=== PATIENT | male | born 1975 | race African-American/Black ===

== ENCOUNTER 2018-03-06 15:13 | Emergency (ER) | payer BC ==
--- NOTE | 2018-03-06 15:45 | EKG ---
Test Date: 2018-03-06 Test Time: 15:24:24 Er Physician: ACOSTA MEASUREMENT RESULTS: Intervals: Rate: 68 AL: 180 QRSD: 88 QT: 372 QTc: 395 [place]: P: 62 AL: 180 QRS: 61 T: 50 INTERPRETIVE STATEMENTS: Normal sinus rhythm Minimal voltage criteria for LVH, may be normal variant Borderline ECG No previous ECG available for comparison Electronically Signed On 03-06-18 15:44:29 CDT by Chapo Iqbal
[2018-03-06 15:57] LABS: Absolute Monocytes 0.6 K/uL (0.1-1.3); Absolute Neutrophil 11.1 K/uL (1.8-8.0); Hematocrit 41.6 % (39.6-49.0); Lymphocytes % 14.2 % (15.3-44.8); MCH 34.6 pg (27.0-35.0); MCV 102.3 fL (80-100); MPV 7.8 fL (7.6-11.3); Monocytes % 4.4 % (3.3-12.3); RBC Red Blood Cell Count 4.07 M/uL (4.33-5.43)
[2018-03-06 15:58] LABS: Protime INR 0.97
[2018-03-06] MEDS ORDERED: MAGNE/ALUM HYDROXD 30 ML UCUP ONE (16:04)
[2018-03-06] MEDS ORDERED: MORPHINE 4 MG/ML SYR ONE (16:06)
[2018-03-06] MEDS ORDERED: LIDOCAINE VISCOUS 2% SOLN 15 ML UDC ONE (16:06)
[2018-03-06] MEDS ORDERED: NA CHLORIDE 0.9% 1,000 ML ONE (16:06)
[2018-03-06] MEDS ORDERED: PANTOPRAZOLE 40 MG INJ ONE (16:06)
[2018-03-06] MEDS ORDERED: ONDANSETRON 4 MG/2 ML VIAL ONE (16:06)
[2018-03-06 16:22] LABS: ALT/SGPT 25 U/L (12-78); AST/SGOT 14 U/L (15-37); Albumin 4.1 g/dL (3.4-5.0); Alkaline Phosphatase 67 U/L (45-117); BUN Blood Urea Nitrogen 19 mg/dL (7-18); Bicarbonate 26 mmol/L (21-32); Bilirubin Direct < 0.1 mg/dL (0-0.2); Bilirubin Total 0.3 mg/dL (0.2-1.0); Glucose Level 111 mg/dL (74-106); Lipase 111 U/L (73-393); Magnesium 2.3 mg/dL (1.8-2.4); NT PRO-BNP 198 pg/mL (<125); Protein, Total 7.6 g/dL (6.4-8.2); Sodium Level 139 mmol/L (136-145); Troponin (Emerg Dept Use Only) < 0.02 ng/mL (0.0-0.045)
--- NOTE | 2018-03-06 16:33 | RAD REPORT ---
EXAM DESCRIPTION: RAD - Chest Single View - 03/06/2018 4:11 pm CLINICAL HISTORY: Chest pain COMPARISON: None. TECHNIQUE: AP portable chest image was obtained 1605 hours . FINDINGS: No focal lung parenchymal process. No failure or volume overload. Interstitial markings ar e mildly prominent with baseline for the patient unknown. Heart and vasculature are normal. No measur able pleural effusion and no pneumothorax. No acute bony abnormality seen. No acute aortic findings s uspected. IMPRESSION: No focal lung parenchymal process. Mild prominence of the interstitial markings noted. On a baseline exam, minimal interstitial edema or infiltrate not excluded.
--- NOTE | 2018-03-06 17:01 | RAD REPORT ---
EXAM DESCRIPTION: CT - Chest For Pe Angio - 03/06/2018 4:50 pm CLINICAL HISTORY: Chest pain COMPARISON: None. TECHNIQUE: Dynamically enhanced 3 mm thick images of the chest were obtained during administration o f approximately 150mL Isovue 370 IV contrast. Coronal and oblique MIP reconstruction images were gene rated and reviewed. Exam utilizes a protocol to evaluate the pulmonary arterial tree. All CT scans are performed using dose optimization technique as appropriate and may include automated exposure control or mA/KV adjustment according to patient size. FINDINGS: No pulmonary emboli are identified. The aorta as imaged shows no acute or suspicious finding. No pericardial thickening or effusion. No infiltrate or mass in the lung parenchyma. No pleural effusion or pleural thickening. No mediastinal or hilar suspicious masses. No chest wall masses or abnormal axillary lymphadenopathy. IMPRESSION: No pulmonary emboli identified. No other significant or suspicious findings.
[2018-03-06 17:26] LABS: Urine Blood NEGATIVE (NEG); Urine Glucose NEGATIVE (NEG); Urine Protein NEGATIVE (NEG); Urine Specific Gravity 1.015 (1.005-1.030)
--- NOTE | 2018-03-06 17:45 | ER ---
Nurse's Notes [facility] Name: Linden Muniz Jr Age: 42 yrs Sex: Male : 1975 Arrival Date: 03/06/2018 Time: 15:15 Bed 6 Private MD: Diagnosis: Gastro-esophageal reflux disease;Hiccough;Other chest pain-non cardiac Presentation: 03/06 15:21 Presenting complaint: Patient states: LAST TUE I WENT INTO URGENT CARE FOR SORE THROAT, ch HICCUPS, AND SINUS ISSUES. THE DAYS PROGRESSED, MY HICKUPS HAVE GOTTEN WORSE. MY THROAT HURTS MORE, AND MY CHEST HURTS A WHOLE LOT. TODAY I CANT CATCH MY BREATH, AND ITS CONCERNING ME. I TOOK ONE ANTIBIOTIC TODAY. Transition of care: patient was not received from another setting of care. Onset of symptoms. Risk Assessment: Do you want to hurt yourself or someone else? Patient reports no desire to harm self or others. Initial Sepsis Screen: Does the patient meet any 2 criteria? No. Patient's initial sepsis screen is negative. Does the patient have a suspected source of infection? No. Patient's initial sepsis screen is negative. Care prior to arrival: None. 15:21 Method Of Arrival: Ambulatory 15:21 Acuity: GERALDO 3 ch Triage Assessment: 15:25 General: Appears in no apparent distress. comfortable, Behavior is calm, cooperative, ch appropriate for age. Pain: Complains of pain in chest, neck and throat Pain currently is 7 out of 10 on a pain scale. Quality of pain is described as burning, Is intermittent. Cardiovascular: Reports chest pain. Respiratory: Reports shortness of breath. Historical: - Allergies: 15:25 No Known Allergies; - Home Meds: 15:25 TRAMADOL, ANBTIBOTIC UNKNOWN, ROBITUSSIN, AND STEROIDS FROM URGENT CARE [Active]; - PMHx: 15:25 SKULL FRACTURE AND GRADE THREE CONCUSSION IN 1996; - PSHx: 15:25 None; - Immunization history:: Adult Immunizations up to date, Flu vaccine is not up to date. - Social history:: Smoking status: Patient uses tobacco products, denies chronic smoking, but will smoke occasionally. - Ebola Screening: : Patient negative for fever greater than or equal to 101.5 degrees Fahrenheit, and additional compatible Ebola Virus Disease symptoms Patient denies exposure to infectious person Patient denies travel to an Ebola-affected area in the 21 days before illness onset No symptoms or risks identified at this time. - Family history:: not pertinent. Screenin:34 Abuse screen: Denies threats or abuse. Nutritional screening: No deficits noted. tw2 Tuberculosis screening: No symptoms or risk factors identified. Fall Risk None identified. Assessment: 15:34 Pain: Pain does not radiate. Pain began gradually. tw2 15:45 General: Appears uncomfortable, Behavior is anxious, crying. Pain: Complains of pain in tw2 chest. Neuro: Level of Consciousness is awake, alert, obeys commands, Oriented to person, place, time, situation. Cardiovascular: Heart tones S1 S2 Patient's skin is warm and dry. Respiratory: Airway is patent Respiratory effort is even, unlabored, Respiratory pattern is regular, symmetrical, Breath sounds are clear bilaterally. pt placed on 2L nc for comfort at this time. GI: Reports indigestion, and hiccups, "and when i get the hiccups it just takes my breath away". : No signs and/or symptoms were reported regarding the genitourinary system. EENT: No signs and/or symptoms were reported regarding the EENT system. Derm: No signs and/or symptoms reported regarding the dermatologic system. Skin is intact, is healthy with good turgor, Skin is dry, Skin temperature is warm. Musculoskeletal: Circulation, motion, and sensation intact. Range of motion: intact in all extremities. 16:28 Reassessment: Patient appears in no apparent distress at this time. Patient and/or tw2 family updated on plan of care and expected duration. Pain level reassessed. Patient is alert, oriented x 3, equal unlabored respirations, skin warm/dry/pink. 16:56 Reassessment: Patient appears in no apparent distress at this time. Patient and/or tw2 family updated on plan of care and expected duration. Pain level reassessed. Patient is alert, oriented x 3, equal unlabored respirations, skin warm/dry/pink. intractable hiccups at this time and during CT scan, provider notified, no further orders at this time. 18:00 Reassessment: Patient appears in no apparent distress at this time. Patient and/or tw2 family updated on plan of care and expected duration. Pain level reassessed. Patient is alert, oriented x 3, equal unlabored respirations, skin warm/dry/pink. 18:19 Reassessment: Patient appears in no apparent distress at this time. Patient and/or tw2 family updated on plan of care and expected duration. Pain level reassessed. Patient is alert, oriented x 3, equal unlabored respirations, skin warm/dry/pink. Vital Signs: 15:25 BP 157 / 98; Pulse 70; Resp 22; Temp 98.8; Pulse Ox 100% on R/A; Weight 88.45 kg; ch Height 6 ft. 1 in. (185.42 cm); Pain 7/10; 16:28 BP 124 / 102; Pulse 67; Resp 17; Pulse Ox 100% on 2 lpm NC; tw2 16:58 BP 142 / 85; Pulse 49; Resp 17; Pulse Ox 100% on 2 lpm NC; tw2 18:01 BP 123 / 86; Pulse 51; Resp 13; Pulse Ox 100% on R/A; tw2 15:25 Body Mass Index 25.73 (88.45 kg, 185.42 cm) ch 16:58 provider notified. tw2 ED Course: 15:15 Patient arrived in ED. as 15:23 Triage completed. ch 15:25 Arm band placed on left wrist. Patient placed in an exam room, on a stretcher. ch 15:27 Rekha Knowles, RN is Primary Nurse. tw2 15:27 Bed in low position. Call light in reach. bus driver/monitor on. Pulse ox on. NIBP on. tw2 15:27 EKG done, by plant tech. reviewed by Dedrick Costello MD. at1 15:30 Dedrick Costello MD is Attending Physician. radhames 15:34 Patient maintains SpO2 saturation greater than 95% on room air. tw2 15:45 Inserted saline lock: 20 gauge in left antecubital area, using aseptic technique. Blood tw2 collected. 16:10 XRAY Chest (1 view) In Process Unspecified. EDMS 16:50 CT Chest For PE Angio In Process Unspecified. EDMS 17:43 Andrew Toussaint MD is Referral Physician. radhames 18:04 Awaiting: awaiting 15 minute watch after medication admin. tw2 18:19 No provider procedures requiring assistance completed. IV discontinued, intact, tw2 bleeding controlled, No redness/swelling at site. Pressure dressing applied. Administered Medications: 16:04 Drug: ProTONIX 40 mg Route: IVP; Site: left antecubital; tw2 16:49 Follow up: Response: No adverse reaction tw2 16:06 Drug: Zofran 4 mg Route: IVP; Site: left antecubital; tw2 17:00 Follow up: Response: No adverse reaction tw2 16:08 Drug: morphine 4 mg Route: IVP; Site: left antecubital; tw2 16:59 Follow up: Response: No adverse reaction tw2 16:09 Drug: NS 0.9% 1000 ml Route: IV; Rate: 125 ml/hr; Site: left antecubital; tw2 18:19 Follow up: IV Status: Order to discontinue infusion tw2 16:09 Drug: GI Cocktail without - (Maalox Suspension 30 ml, Lidocaine Liquid 2 % 15 tw2 ml) Route: PO; 16:59 Follow up: Response: No adverse reaction; No change in condition tw2 17:42 CANCELLED (Duplicate Order): chlorproMAZINE 25 mg IV at per protocol once [facility] 18:00 Drug: chlorproMAZINE 25 mg Route: PO; tw2 18:18 Follow up: Response: No adverse reaction tw2 Outcome: 17:45 Discharge ordered by . [facility] 18:19 Discharged to home ambulatory. tw2 18:19 Condition: stable 18:19 Discharge instructions given to patient, Instructed on discharge instructions, follow up and referral plans. no drinking with medication, no driving heavy equipment, medication usage, Demonstrated understanding of instructions, follow-up care, medications, Prescriptions given X 3. 18:20 Patient left the ED. tw2 Signatures: Dispatcher [employer] EDMS Jodee Baker, RN Dedrick Garcia ch, MD MD cha Martinez, Amelia as Gonzales, Amanda, methods specialist EKG Tat1 Rekha Knowles RN RN tw2
--- NOTE | 2018-03-06 17:45 | EDPHYS ---
Physician Documentation [facility] Name: Linden Muniz Jr Age: 42 yrs Sex: Male : 1975 Arrival Date: 03/06/2018 Time: 15:15 Bed 6 Private MD: ED Physician Dedrick Costello HPI: 03/06 15:45 This 42 yrs old Black Male presents to ER via Ambulatory with complaints of Chest Pain, radhames Shortness Of Breath. 15:45 The patient or guardian reports chest pain that is located primarily in the substernal radhames area, anterior chest wall. Onset: 3 day(s) ago. The pain does not radiate. Associated signs and symptoms: The patient has no apparent associated signs or symptoms. Associated signs and symptoms: Pertinent positives: cough, shortness of breath. The chest pain is described as burning. Modifying factors: The symptoms are alleviated by remaining still, hiccups. Severity of pain: At its worst the pain was moderate in the emergency department the pain is unchanged. The patient has not experienced similar symptoms in the past. Historical: - Allergies: 15:25 No Known Allergies; ch - Home Meds: 15:25 TRAMADOL, ANBTIBOTIC UNKNOWN, ROBITUSSIN, AND STEROIDS FROM URGENT CARE [Active]; ch - PMHx: 15:25 SKULL FRACTURE AND GRADE THREE CONCUSSION IN 1996; ch - PSHx: 15:25 None; ch - Immunization history:: Adult Immunizations up to date, Flu vaccine is not up to date. - Social history:: Smoking status: Patient uses tobacco products, denies chronic smoking, but will smoke occasionally. - Ebola Screening: : Patient negative for fever greater than or equal to 101.5 degrees Fahrenheit, and additional compatible Ebola Virus Disease symptoms Patient denies exposure to infectious person Patient denies travel to an Ebola-affected area in the 21 days before illness onset No symptoms or risks identified at this time. - Family history:: not pertinent. ROS: 15:45 Constitutional: Negative for fever, chills, and weight loss, Eyes: Negative for injury, radhames pain, redness, and discharge, ENT: Negative for injury, pain, and discharge, Neck: Negative for injury, pain, and swelling, Respiratory: Negative for shortness of breath, cough, wheezing, and pleuritic chest pain, Abdomen/GI: Negative for abdominal pain, nausea, vomiting, diarrhea, and constipation, Back: Negative for injury and pain, : Negative for injury, bleeding, discharge, and swelling, MS/Extremity: Negative for injury and deformity, Skin: Negative for injury, rash, and discoloration, Neuro: Negative for headache, weakness, numbness, tingling, and seizure, Psych: Negative for depression, anxiety, suicide ideation, homicidal ideation, and hallucinations, Allergy/Immunology: Negative for hives, rash, and allergies, Endocrine: Negative for neck swelling, polydipsia, polyuria, polyphagia, and marked weight changes, Hematologic/Lymphatic: Negative for swollen nodes, abnormal bleeding, and unusual bruising. 15:45 Cardiovascular: Positive for chest pain, of the chest. Exam: 15:45 Constitutional: This is a well developed, well nourished patient who is awake, alert, radhames and in no acute distress. Head/Face: Normocephalic, atraumatic. Eyes: Pupils equal round and reactive to light, extra-ocular motions intact. Lids and lashes normal. Conjunctiva and sclera are non-icteric and not injected. Cornea within normal limits. Periorbital areas with no swelling, redness, or edema. ENT: Nares patent. No nasal discharge, no septal abnormalities noted. Tympanic membranes are normal and external auditory canals are clear. Oropharynx with no redness, swelling, or masses, exudates, or evidence of obstruction, uvula midline. Mucous membranes moist. Neck: Trachea midline, no thyromegaly or masses palpated, and no cervical lymphadenopathy. Supple, full range of motion without nuchal rigidity, or vertebral point tenderness. No Meningismus. Chest/axilla: Normal chest wall appearance and motion. Nontender with no deformity. No lesions are appreciated. Abdomen/GI: Soft, non-tender, with normal bowel sounds. No distension or tympany. No guarding or rebound. No evidence of tenderness throughout. Back: No spinal tenderness. No costovertebral tenderness. Full range of motion. Male : Normal genitalia with no discharge or lesions. Skin: Warm, dry with normal turgor. Normal color with no rashes, no lesions, and no evidence of cellulitis. MS/ Extremity: Pulses equal, no cyanosis. Neurovascular intact. Full, normal range of motion. Neuro: Awake and alert, GCS 15, oriented to person, place, time, and situation. Cranial nerves II-XII grossly intact. Motor strength 5/5 in all extremities. Sensory grossly intact. Cerebellar exam normal. Normal gait. Psych: Awake, alert, with orientation to person, place and time. Behavior, mood, and affect are within normal limits. 15:45 Cardiovascular: Rate: normal, Rhythm: regular, Heart sounds: normal, Edema: is not appreciated, JVD: is not appreciated. 15:48 Musculoskeletal/extremity: DVT Exam: No signs of deep vein thrombosis. no pain, no radhames swelling, no tenderness, negative Homans' sign noted on exam, no appreciated bluish discoloration, no erythema, no increased warmth. Vital Signs: 15:25 BP 157 / 98; Pulse 70; Resp 22; Temp 98.8; Pulse Ox 100% on R/A; Weight 88.45 kg; ch Height 6 ft. 1 in. (185.42 cm); Pain 7/10; 16:28 BP 124 / 102; Pulse 67; Resp 17; Pulse Ox 100% on 2 lpm NC; tw2 16:58 BP 142 / 85; Pulse 49; Resp 17; Pulse Ox 100% on 2 lpm NC; tw2 18:01 BP 123 / 86; Pulse 51; Resp 13; Pulse Ox 100% on R/A; tw2 15:25 Body Mass Index 25.73 (88.45 kg, 185.42 cm) ch 16:58 provider notified. tw2 MDM: 15:30 Patient medically screened. [facility] 15:48 Data reviewed: vital signs, nurses notes, lab test result(s), EKG, radiologic studies, [facility] CT scan, plain films. 03/06 15:31 Order name: Basic Metabolic Panel; Complete Time: 17:24 [facility] 03/06 15:31 Order name: CBC with Diff; Complete Time: 17:24 [facility] 03/06 15:31 Order name: LFT's; Complete Time: 17:24 [facility] 03/06 15:31 Order name: Magnesium; Complete Time: 17:24 [facility] 03/06 15:31 Order name: NT PRO-BNP; Complete Time: 17:24 [facility] 03/06 15:31 Order name: PT-INR; Complete Time: 17:24 [facility] 03/06 15:31 Order name: Troponin (emerg Dept Use Only); Complete Time: 17:24 [facility] 03/06 15:31 Order name: XRAY Chest (1 view); Complete Time: 17:24 [facility] 03/06 15:31 Order name: Lipase; Complete Time: 17:24 [facility] 03/06 15:45 Order name: CT Chest For PE Angio; Complete Time: 17:24 [facility] 03/06 17:20 Order name: Urine Dipstick--Ancillary (enter results); Complete Time: 17:40 03/06 15:31 Order name: EKG - Nurse/Tech; Complete Time: 15:31 [facility] 03/06 15:31 Order name: EKG; Complete Time: 15:31 [facility] 03/06 15:31 Order name: Cardiac monitoring; Complete Time: 15:34 [facility] 03/06 15:31 Order name: EKG - Nurse/Tech; Complete Time: 15:34 [facility] 03/06 15:31 Order name: IV Saline Lock; Complete Time: 15:54 [facility] 03/06 15:31 Order name: Labs collected and sent; Complete Time: 15:33 [facility] 03/06 15:31 Order name: O2 Per Protocol; Complete Time: 15:33 [facility] 03/06 15:31 Order name: O2 Sat Monitoring; Complete Time: 15:33 [facility] 03/06 15:31 Order name: Urine Dipstick-Ancillary (obtain specimen); Complete Time: 17:18 [facility] Administered Medications: 16:04 Drug: ProTONIX 40 mg Route: IVP; Site: left antecubital; tw2 16:49 Follow up: Response: No adverse reaction tw2 16:06 Drug: Zofran 4 mg Route: IVP; Site: left antecubital; tw2 17:00 Follow up: Response: No adverse reaction tw2 16:08 Drug: morphine 4 mg Route: IVP; Site: left antecubital; tw2 16:59 Follow up: Response: No adverse reaction tw2 16:09 Drug: NS 0.9% 1000 ml Route: IV; Rate: 125 ml/hr; Site: left antecubital; tw2 18:19 Follow up: IV Status: Order to discontinue infusion tw2 16:09 Drug: GI Cocktail without - (Maalox Suspension 30 ml, Lidocaine Liquid 2 % 15 tw2 ml) Route: PO; 16:59 Follow up: Response: No adverse reaction; No change in condition tw2 17:42 CANCELLED (Duplicate Order): chlorproMAZINE 25 mg IV at per protocol once radhames 18:00 Drug: chlorproMAZINE 25 mg Route: PO; tw2 18:18 Follow up: Response: No adverse reaction tw2 Disposition: 03/06/18 17:45 Discharged to Home. Impression: Gastro-esophageal reflux disease, Hiccough, Other chest pain - non cardiac. - Condition is Stable. - Discharge Instructions: Nonspecific Chest Pain, Hiccups, Nonspecific Chest Pain, [id number]. - Prescriptions for chlorpromazine 25 mg Oral tablet - take 1 tablet by ORAL route every 6 hours as needed; 15 tablet. Bentyl 20 mg Oral Tablet - take 1 tablet by ORAL route every 6 hours As needed; 20 tablet. Protonix 40 mg Oral Tablet, Delayed Release (E.C.) - take 1 tablet by ORAL route once daily; 14 tablet. - Medication Reconciliation Form, Thank You Letter, Antibiotic Education, Prescription Opioid Use, Work release form form. - Follow up: Private Physician; When: 2 - 3 days; Reason: Recheck today's complaints, Continuance of care, Re-evaluation by your physician. Follow up: Andrew Toussaint MD; When: 2 - 3 days; Reason: Recheck today's complaints, Continuance of care, Re-evaluation by your physician. - Problem is new. - Symptoms have improved. Signatures: Dispatcher [employer] EDJodee Flores, RN Dedrick Garcia ch, MD MD cha Wise, Tara, RN RN tw2 Corrections: (The following items were deleted from the chart) 17:42 17:40 chlorproMAZINE 25 mg IV at per protocol once ordered. [facility] 18:20 17:45 03/06/2018 17:45 Discharged to Home. Impression: Gastro-esophageal reflux tw2 disease; Hiccough; Other chest pain - non cardiac. Condition is Stable. Forms are Medication Reconciliation Form, Thank You Letter, Antibiotic Education, Prescription Opioid Use. Follow up: Private Physician; When: 2 - 3 days; Reason: Recheck today's complaints, Continuance of care, Re-evaluation by your physician. Follow up: Andrew Toussaint; When: 2 - 3 days; Reason: Recheck today's complaints, Continuance of care, Re-evaluation by your physician. Problem is new. Symptoms have improved. radhames
[2018-03-06] MEDS ORDERED: CHLORPROMAZINE 25 MG TAB PO ONE (18:00)
== END 2018-03-06 18:20 | disposition home or self-care (01) ==
LOC: ER 15:13
DX: K21.9 Gastro-esophageal reflux disease without esophagitis (principal); R06.6 Hiccough; Z72.0 Tobacco use
CPT/HCPCS: 36415; 71045; 71275; 80048; 80076; 81003; 83690; 83735; 83880; 84484; 85025; 85610; 93005; 96361; 96374; 96375; 99285; C9113; J2405; J7030; Q9967